=== PATIENT | female | born 1995 | race African-American/Black ===

== ENCOUNTER 2017-02-26 19:07 | Emergency (ER) | payer OTHER ==
[~2017-02-26] VITALS: Ht 157.5 cm; Wt 79.4 kg
--- NOTE | ~2017-02-26 | CR72 ---
[facility] A Service of [facility] / [facility] RADIOLOGY TEXT RESULTS PATIENT: BELLA BRUNO LOCATION: [facility] : [birth year] UNIT #: [id number] AGE: [address]: Jericho Moore DO SEX: F ORDER DR: [id number] [facility] [address] [place], [place] [address] [id number] E MR#: [id number] Acc #: [id number] NAME: BELLA BRUNO : 1995 SEX: F STUDY DATE/TIME: 02/26/2017 19:35 UNIT: [facility] ROOM: STUDY DESCRIPTION: CR Chest Single View Portable Attending Physician: Jericho Moore D.O. Ordering Physician: Ed Doctor [id number] [facility] Primary Care Physician: Miladys Bar MEDICAL IMAGING REPORT This report is preliminary unless electronic signature is present EXAM Portable chest 02/26/2017 HISTORY A 21-year-old female with chest pain beginning today. COMPARISON STUDIES None. FINDINGS Frontal chest demonstrates clear lungs. No pleural effusion or pneumothorax. The heart size and mediastinum are normal. Pulmonary vasculature normal. IMPRESSION No acute cardiopulmonary findings Dictated by... Abbe Orona M.D. THIS IS AN ELECTRONICALLY VERIFIED REPORT Abbe Orona M.D. at 02/27/2017 2:18 PM LUIGI/cordelia TD: 02/27/2017 12:57 JOB #: [id number] MEDICAL IMAGING REPORT Page 1 of 1 COPY
--- NOTE | ~2017-02-26 | EKG ---
PATIENT: BELLA BRUNO UNIT #: [id number] Ventricular Rate: 83 BPM Atrial Rate: 83 BPM P-R Interval: 140 ms QRS Duration: 94 ms Q-T Interval: 356 ms QTC Calculation(Bezet): 418 ms P Seiling: -2 degrees Calculated R Seiling: 88 degrees Calculated T Seiling: 26 degrees Diagnosis Line: Normal sinus rhythm Diagnosis Line: Incomplete right bundle branch block Diagnosis Line: Borderline ECG Diagnosis Line: No previous ECGs available Diagnosis Line: Confirmed by DENIA RUIZ MD ([id number]) on Diagnosis Line: 02/27/2017 3:52:13 PM INTERPRETING MD: SARA SAUCEDO
--- NOTE | ~2017-02-26 | CT16 ---
[facility] A Service of [facility] RADIOLOGY TEXT RESULTS PATIENT: BELLA BRUNO LOCATION: [facility] : [birth year] UNIT #: [id number] AGE: [address]: Jericho Moore DO SEX: F ORDER DR: [id number] [id number] [facility] [place], [place] [address] [id number] E MR#: [id number] Acc #: [id number] NAME: BELLA BRUNO : 1995 SEX: F STUDY DATE/TIME: 02/26/2017 21:40 UNIT: [facility] ROOM: STUDY DESCRIPTION: CT Angio Chest for PE Attending Physician: Jericho Moore D.O. Ordering Physician: Jericho Moore D.O. Primary Care Physician: Gretchen SteelePSaeed MEDICAL IMAGING REPORT This report is preliminary unless electronic signature is present EXAM CTA chest with contrast PE protocol, 02/26/2017 HISTORY 21-year-old female with chest pain beginning today. COMPARISON None TECHNIQUE Helical scan performed through the chest following timed bolus administration of IV contrast per PE protocol. Coronal 3-D MIP reconstructions. Sagittal reformatted images. This CT exam was performed with one or more of the following radiation dose reduction techniques: automatic exposure control, adjustment of mA and/or kV according to patient size, and iterative reconstruction. FINDINGS There is adequate opacification of the pulmonary arteries and no filling defects demonstrated. Thoracic aorta normal in course and caliber without dissection. Heart size normal. No pericardial effusion. No pleural effusions. No pneumothorax. No parenchymal infiltrates. Visualized upper abdomen is unremarkable. No acute bony abnormality. IMPRESSION 1. Negative for pulmonary emboli. 2. Negative for thoracic aortic aneurysm/dissection. 3. No acute pulmonary process. Dictated by... [facility] A Service of [facility] RADIOLOGY TEXT RESULTS PATIENT: BELLA BRUNO LOCATION: [facility] : [birth year] UNIT #: [id number] AGE: [address]: Hottman,Jericho M DO SEX: F ORDER DR: Abbe Orona M.D. THIS IS AN ELECTRONICALLY VERIFIED REPORT Abbe Orona M.D. at 02/27/2017 2:23 PM Shayna TD: 02/27/2017 13:08 JOB #: [id number] MEDICAL IMAGING REPORT Page 1 of 1 COPY
[2017-02-26 20:07] LABS: BASOPHIL% 0.6 % (0-2.5); EOSINOPHIL# 0.2 X10e3 (0-0.7); HEMATOCRIT 40.2 % (35.0-45.0); HEMOGLOBIN 13.1 gm/dL (12.0-16.0); LYMPHOCYTE% 35.6 % (17.0-45.0); MEAN CORPUSCULAR HEMOGLOBIN 26.1 PG (28-34); MEAN CORPUSCULAR HGB CONC 32.6 g/dL (30-36); MONOCYTE# 0.6 X10e3 (0-1.0); MONOCYTE% 7.3 % (3.0-12.0); NEUTROPHIL# 4.6 X10e3 (1.5-7.1); NEUTROPHIL% 54.5 % (40-75); PLATELET COUNT 285 X10e3 (140-420); RED BLOOD COUNT 5.02 X10e (3.90-5.30); RED CELL DISTRIBUTION WIDTH 14.5 % (11.0-15.5); WHITE BLOOD COUNT 8.4 X10e3 (4.0-10.5)
[2017-02-26 20:08] LABS: DIFF IND NO
[2017-02-26 20:32] LABS: ALBUMIN SERUM 4.1 g/dL (3.5-5.0); BILIRUBIN, DIRECT 0.1 mg/dL (0.0-0.2); BILIRUBIN,INDIRECT 0.4 mg/dL (0.0-0.9); BILIRUBIN,TOTAL 0.5 mg/dL (0.2-2.0); BUN/CREATININE RATIO 13.33; CALCIUM SERUM 9.2 mg/dL (8.4-10.2); CREATININE SERUM 0.6 mg/dL (0.6-1.4); POTASSIUM 3.8 mmol/L (3.5-5.1); PROTEIN TOTAL SERUM 7.8 g/dL (6.0-8.3)
[2017-02-26 20:44] LABS: POC - CKMB <1.0 ng/mL (0.0-7.9); POC - TROPONIN <0.05 ng/mL (<=0.05)
[2017-02-26 21:23] LABS: URINE SOURCE CLEAN CATCH
[2017-02-26 21:33] LABS: CULTURE INDICATED? NO; U HYALINE CASTS AUWI 0-2 /[LPF]; URBCS1 AUWI 0-2 /[HPF] (0-2); URINE APPEARANCE CLEAR; URINE BACTERIA AUWI NEG (NEGATIVE); URINE BILIRUBIN NEG (NEG); URINE BLOOD NEG (NEG); URINE COLOR YELLOW; URINE GLUCOSE NEG (NEG); URINE KETONE NEG (NEG); URINE LEUKOCYTE ESTERASE TRACE (NEG); URINE NITRATE NEG (NEG); URINE PROTEIN NEG (NEG); URINE SPECIFIC GRAVITY 1.014 (1.003-1.035); URINE SQUAMOUS EPITHELIAL CELL NONE SEEN /[HPF]; URINE UROBILINOGEN 0.2 MG/DL (NEG)
[2017-02-26 23:13] LABS: POC - CKMB <1.0 ng/mL (0.0-7.9); POC - TROPONIN <0.05 ng/mL (<=0.05)
== END 2017-02-26 23:39 | disposition home or self-care (01) ==
LOC: CED 19:07
PROVIDERS: Emergency Medicine
DX: R07.89 Other chest pain (principal)
CPT/HCPCS: 36415; 71010; 71275; 80048; 80076; 81003; 82553; 83690; 84484; 84703; 85025; 85379; 93005; 96374; 99285; Q9967